=== PATIENT | female | born 1955 | race Caucasian/White ===

== ENCOUNTER 2018-08-21 10:24 | Emergency (ER) | payer OTHER ==
[~2018-08-21] VITALS: Ht 157.5 cm; Wt 88.0 kg
[2018-08-21] MEDS ORDERED: PRINIVIL20 M1 PO (10:44)
[2018-08-21] MEDS ORDERED: INFUSION (10:44)
[2018-08-21] MEDS ORDERED: FLEXERIL PO (10:45)
[2018-08-21] MEDS ORDERED: NORCO 5-325 TA1 EACH PO (11:39)
[2018-08-21 12:03] VITALS: BP 125/49
== END 2018-08-21 12:05 | disposition home or self-care (01) ==
LOC: M.ERS 10:24
DX: M25.562 Pain in left knee (principal); I10 Essential (primary) hypertension; M06.9 Rheumatoid arthritis, unspecified; M79.7 Fibromyalgia; J45.909 Unspecified asthma, uncomplicated; Z88.5 Allergy status to narcotic agent; Z91.041 Radiographic dye allergy status